=== PATIENT | female | born 1995 | race Caucasian/White ===

== ENCOUNTER 2018-01-15 05:33 | Inpatient (IN) ==
[2018-01-15] MEDS ORDERED: Metoprolol Tartrate 25 MG Tablet PO ONE (05:57)
[2018-01-15] MEDS ORDERED: Chlorhexidine Gluconate 2% 1 Pack (2 Cloths) TOPICAL ONE (05:57)
[2018-01-15] MEDS ORDERED: Sodium Chlor 0.9% Inj 500 ML IV.SIG SCH (06:00)
[2018-01-15] MEDS ORDERED: Heparin - SQ 10,000 UNITS/ML Vial SQ PRN (06:01)
[2018-01-15] MEDS ORDERED: ceFAZolin 2 GM IV; once IV.SIG PRN (06:02)
[2018-01-15] MEDS ORDERED: fentaNYL Citrate Inj 250 MCG/5 ML Ampul ONE (07:01)
[2018-01-15] MEDS ORDERED: HYDROmorphone PF Inj 2 MG/ML Vial ONE (07:02)
[2018-01-15] MEDS ORDERED: Lidocaine PF 1% Inj 5 ML Syringe OTHER ONE (07:14)
[2018-01-15] MEDS ORDERED: Sugammadex Inj 200 MG/2 ML Vial IV.PUSH ONE (08:53)
[2018-01-15] MEDS ORDERED: Naloxone Inj 0.4 MG/ML Vial IV.PUSH PRN (09:53)
[2018-01-15] MEDS ORDERED: Morphine Inj 4 MG/ML Vial ONE (10:26)
[2018-01-15] MEDS ORDERED: fentaNYL Citrate Inj 100 MCG/2 ML Ampul ONE (10:26)
[2018-01-15] MEDS ORDERED: *Meperidine Inj 25 MG/ML Vial PERIprocedural Use ONLY ONE (10:39)
[2018-01-15] MEDS ORDERED: *Ondansetron Inj 4 MG/2 ML Vial PERIprocedural Use ONLY ONE (10:42)
[2018-01-15] MEDS: Morphine Inj 30 MG/30 ML PCA.VIAL PCA PRN ×2 (11:03→13:29)
[2018-01-15] MEDS: Ketorolac Inj 30 MG/ML (IVP) Vial IV.PUSH SCH ×2 (12:20→18:42)
[2018-01-15] MEDS: LORazepam 0.5 MG Tablet PO PRN (13:21)
--- NOTE | 2018-01-15 16:01 | P.PNONC ---
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: patient is resting in bed with family at bedside pain controlled using CASINO DEALER pump IS at bedside no complaints Objective Vital Signs/Intake & Output: Vital Signs 01/15/18 06:48 01/15/18 10:16 01/15/18 10:30 Temperature 98.2 F 98 F Pulse Rate 89 87 77 Respiratory Rate 16 16 16 Blood Pressure 125/68 120/80 117/60 Pulse Oximetry 100 96 96 01/15/18 10:45 01/15/18 11:00 01/15/18 12:00 Temperature 97.6 F 97.8 F Pulse Rate 83 72 69 Respiratory Rate 16 16 18 Blood Pressure 124/67 116/73 116/73 Pulse Oximetry 96 96 98 Intake & Output 01/14/18 01/15/18 01/15/18 18:59 06:59 18:59 Intake Total 1500 / 1500 Output Total 100 / 100 Balance 1400 / 1400 Weight 86.8 kg Intake: Anesthesia Amount 1500 / 1500 Output: Estimated Blood Loss 100 / 100 Other: Weight On Admission 86.8 kg Laboratory Results: Laboratory Results - last 24 hr 01/15/18 06:40 Blood Type A Positive Blood Type Recheck Required Antibody Screen Negative Medications: Active Medications Generic Name Dose Route Start Last Admin Trade Name Freq PRN Reason Stop Dose Admin Diphenhydramine HCl 25 mg 01/15/18 09:53 01/15/18 11:58 Benadryl PO 25 mg Q6H PRN Administration ITCHING Heparin Sodium (Porcine) 5,000 units 01/15/18 06:01 01/15/18 06:40 Heparin Inj SQ 01/15/18 22:00 5,000 units SAFETY AND OCCUPATIONAL HEALTH MANAGER PRN Administration GIVE PRE-OP SAFETY AND OCCUPATIONAL HEALTH MANAGER TO OR Sodium Chloride 500 mls @ 30 mls/hr 01/15/18 06:00 01/15/18 07:22 Ns Inj IV.SIG Not Given .Q10H KELLEN Lactated Ringer's 1,000 mls @ 30 mls/hr 01/15/18 06:00 01/15/18 06:00 Lr 1000 Ml Inj IV.SIG 01/16/18 05:59 30 mls/hr .Q24H KELLEN Administration Cefazolin Sodium/Dextrose 2 gm in 50 mls @ 100 mls/hr 01/15/18 06:02 07:05 Ancef 2 Gm Premix Inj IV.SIG 01/15/18 22:00 100 mls/hr SAFETY AND OCCUPATIONAL HEALTH MANAGER PRN Administration PRE-OP SAFETY AND OCCUPATIONAL HEALTH MANAGER TO OR Morphine Sulfate 30 mg in 30 mls @ 0 mls/hr 01/15/18 09:53 01/15/18 13:33 Morphine Inj CASINO DEALER 0 mls/hr UNSCH PRN Infusion per CASINO DEALER parameters 0 MG/HR Ketorolac Tromethamine 30 mg 01/15/18 12:00 01/15/18 12:20 Toradol Inj IV.PUSH 01/18/18 06:01 30 mg Q6HR KELLEN Administration Lorazepam 0.5 mg 01/15/18 09:53 01/15/18 13:21 Ativan PO 0.5 mg Q8H PRN Administration ANXIETY Objective Remarks: GENERAL: Well-nourished, well-developed patient. SKIN: Warm and dry. HEAD: Normocephalic. EYES: No scleral icterus. No injection or drainage. CARDIOVASCULAR: Regular rate and rhythm without murmurs. RESPIRATORY: Breath sounds equal bilaterally. No accessory muscle use. GASTROINTESTINAL: Abdomen soft, nondistended, dressing is C/D/I EXTREMITIES: scds MUSCULOSKELETAL: Adequate muscle tone. NEUROLOGICAL: No obvious focal deficit. Awake, alert, and oriented x3. PSYCHIATRIC: Appropriate mood and affect; insight and judgment normal. Assessment/Plan (1) Pelvic mass in female Code(s): R19.00 - Intra-abdominal and pelvic swelling, mass and lump, unspecified site Status: Resolved - Plan post op s/p X lap for resection of pelvic mass final pathology is pending ADAT IS at bedside CASINO DEALER and Toradol for pain Petersen cath to straight drain, remove on POD #2 OOB to chair tomorrow and ambulate anticipate patient discharged home within the next 48 hours.
[2018-01-15] MEDS: Temazepam 15 MG Capsule PO SCH (20:56)
[2018-01-15] MEDS: Divalproex 500 MG ER Tablet PO SCH (20:57)
[2018-01-16] MEDS: Ketorolac Inj 30 MG/ML (IVP) Vial IV.PUSH SCH ×4 (00:22→17:35)
[2018-01-16] MEDS: LORazepam 0.5 MG Tablet PO PRN (05:23)
[2018-01-16 06:58] LABS: Baso % (Auto) 0.2 % (0.0-2.0); Eos # (Auto) 0.1 th/mm3 (0.0-0.4); Eos % (Auto) 0.5 % (0.0-4.0); Hematocrit 34.3 % (35.0-46.0); Hemoglobin 11.5 gm/dL (11.6-15.3); Lymph # (Auto) 2.6 th/mm3 (1.0-4.8); Lymph % (Auto) 19.3 % (9.0-44.0); Mean Corpuscular HGB Conc 33.5 % (32.0-36.0); Mean Corpuscular Volume 89.7 fL (80.0-100.0); Mean Platelet Volume 7.3 fL (7.0-11.0); Mono # (Auto) 1.7 th/mm3 (0.0-0.9); Mono % (Auto) 12.4 % (0.0-8.0); Neut # (Auto) 9.2 th/mm3 (1.8-7.7); Neut % (Auto) 67.6 % (16.0-70.0); Platelet Count 287 th/mm3 (150-450); Red Blood Count 3.82 mil/mm3 (4.00-5.30); Red Cell Distribution Width 15.5 % (11.6-17.2); White Blood Count 13.7 th/mm3 (4.0-11.0)
[2018-01-16 07:12] LABS: Anion Gap 9 meq/L (5-15); Blood Urea Nitrogen 5 mg/dL (7-18); Calcium 7.8 mg/dL (8.5-10.1); Carbon Dioxide 28.4 meq/L (21.0-32.0); Chloride 105 meq/L (98-107); Glomerular Filtration Rate Greater Than 89 mL/min (>89); Glucose,Random 94 mg/dL (74-106); Potassium 4.2 meq/L (3.5-5.1); Sodium 142 meq/L (136-145)
--- NOTE | 2018-01-16 08:09 | P.PN ---
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, tolerating adhesive dressing without any problems Physical Exam Vital signs: Vital Signs 01/15/18 10:16 01/15/18 10:30 01/15/18 10:45 Temperature 98 F Pulse Rate 87 77 83 Respiratory Rate 16 16 16 Blood Pressure 120/80 117/60 124/67 Pulse Oximetry 96 96 96 01/15/18 11:00 01/15/18 12:00 01/15/18 14:00 Temperature 97.6 F 97.8 F Pulse Rate 72 69 Respiratory Rate 16 18 18 Blood Pressure 116/73 116/73 Pulse Oximetry 96 98 01/15/18 16:00 01/15/18 18:24 01/15/18 20:00 Temperature 99.4 F Pulse Rate 95 H 98 H Respiratory Rate 18 18 18 Blood Pressure 124/69 131/72 Pulse Oximetry 99 96 01/16/18 00:00 01/16/18 04:00 Temperature 98.6 F 98.5 F Pulse Rate 105 H 80 Respiratory Rate 16 16 Blood Pressure 107/71 95/55 L Pulse Oximetry 99 97 Intake & Output 01/15/18 01/16/18 01/16/18 18:59 06:59 18:59 Intake Total 2150 / 2150 1480 / 1480 Output Total 500 / 500 1800 / 1800 Balance 1650 / 1650 -320 / -320 Weight 89.5 kg Intake: IV 50 / 50 1000 / 1000 LR 1000 mL Inj 1,000 ML @ 30 1000 / 1000 mls/hr IV.SIG .Q24H [facility] Rx#: [id number] Ancef 2 GM Premix Inj 2 gm In 50 / 50 50 ml @ 100 mls/hr IV.SIG BRASS PICKLER PRN Rx#:[id number] Oral 600 / 600 480 / 480 Anesthesia Amount 1500 / 1500 Output: Urine 1800 / 1800 Estimated Blood Loss 100 / 100 Urine Amount (Catheter) 400 / 400 100 400 / 400 - Constitutional no acute distress - Routine HEENT Exam Eye: Present: EOMI - Routine Respiratory Exam Present: CTA bilaterally - Routine Cardiovascular Exam Present: RRR - Routine Abdominal Exam Present: soft (dressing clean and dry, no skin irritation) - Routine Neurological Exam Present: alert, oriented X3 - Routine Psychiatric Exam Present: normal affect - Urinary Catheter Management 100 Cath placed during this visit: no Reason for continuing: Other continuation reason Results - Labs CBC & Chem 7: 01/16/18 06:30 01/16/18 06:30 Laboratory Results - last 24 hr 01/16/18 01/16/18 06:30 06:30 WBC 13.7 H RBC 3.82 L Hgb 11.5 L Hct 34.3 L MCV 89.7 MCH 30.0 MCHC 33.5 RDW 15.5 Plt Count 287 MPV 7.3 Neut % (Auto) 67.6 Lymph % (Auto) 19.3 [place] % (Auto) 12.4 H Eos % (Auto) 0.5 Baso % (Auto) 0.2 Neut # (Auto) 9.2 H Lymph # (Auto) 2.6 [place] # (Auto) 1.7 H Eos # (Auto) 0.1 Baso # (Auto) 0.0 WBC Differential . Differential Comment Auto diff final Sodium 142 Potassium 4.2 Chloride 105 Carbon Dioxide 28.4 Anion Gap 9 BUN 5 L Creatinine 0.66 Estimated GFR Greater than 89 Random Glucose 94 Calcium 7.8 L Assessment and Plan - Assessment (1) Pelvic mass in female Code(s): R19.00 - Intra-abdominal and pelvic swelling, mass and lump, unspecified site Status: Resolved - Plan POD#1 doing well in early post op period findings, steps taken & preliminary path reviewed, q&a, she understands oob, spirometry, adat, d/c bray when ambulatory
[2018-01-16] MEDS: Morphine Inj 30 MG/30 ML PCA.VIAL PCA PRN ×2 (09:20→18:38)
[2018-01-16] MEDS: Divalproex 500 MG ER Tablet PO SCH ×2 (09:20→20:28)
--- NOTE | 2018-01-16 13:14 | MP ---
cc: Nikki Burnett MD, Carhine MD Gosalia, Nikita DO DATE OF OPERATION: 01/15/2018 DATE OF PROCEDURE: 01/15/2018 PREOPERATIVE DIAGNOSES: 1. Complex pelvic mass (versus bilateral masses). 2. Features suggestive of ovarian mature cystic teratomas. POSTOPERATIVE DIAGNOSES: 1. 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 2. Normal-appearing left ovary, fallopian tube, and uterus. PROCEDURE PERFORMED: Exploratory laparotomy, resection of approximately 18 cm right ovarian mass with torsion, lysis of adhesions. SURGEON: Nikki Burnett MD ESTIMATING MANAGER: Gaurav first crusher. ANESTHESIA: General endotracheal anesthesia. ESTIMATED BLOOD LOSS: 100 mL. IV FLUIDS: 1500 mL. URINE OUTPUT: 100 mL. INDICATIONS FOR PROCEDURE: This is a 22-year-old female found on exam and imaging to have complex pelvic mass versus possible bilateral masses based on findings on CAT scan and ultrasound. Imaging characteristics showed calcifications and fat with overall changes suggestive of ovarian mature cystic teratomas. She was seen and counseled in the office and seen again in the preop holding area accompanied by her family where the findings and plan of care are again reviewed. Questions were asked and answered. Her and her family expressed good understanding and she is ready to proceed with surgical evaluation. We discussed again the potential reproductive and menopausal ramifications depending on the extent of the surgery required. She expressed good understanding. FINDINGS: Upon entry into the peritoneal cavity, there was a small amount of vel-colored slightly bloody ascites, which was collected for cytology. Exploration allowed identification of the large mass, which was arising from the pelvis extending to the level of the umbilicus, which was consistent with findings of preoperative exam under anesthesia and it was felt that laparotomy was required to accomplish surgical objectives and it was felt that she was not a good candidate for laparoscopic surgery. Upon entry into the peritoneal cavity, approximately 18 cm multilobulated bilobed complex mass was seen. The upper portion of the mass was extending above the pelvis toward the umbilicus and in the lower portion of the mass was wedged in the posterior cul-de-sac with some bands of adhesions between the omentum and the mass as well as the mass and the colonic mesenteric with filmy adhesions to surrounding structures. After the adhesions were lysed, the mass was able to be mobilized and lifted out of the posterior cul-de-sac. At this point, it could be seen arising from and replacing the right ovary. The uterus was visualized, small and normal in appearance, and the left tube and ovary appeared normal with a small area that appeared to be consistent with recent ovulatory cyst. No neoplastic changes were visible or palpable in the left adnexa. Exploration of the peritoneal cavity showed the liver diaphragm edges to be smooth. There were no peritoneal implants. There were no appreciably enlarged pelvic or paraaortic lymph nodes and the frozen section analysis of the right ovarian mass showed it to be a mature cystic teratoma. DESCRIPTION OF PROCEDURE: She was taken to the operating room and placed in dorsal lithotomy position after general endotracheal anesthesia was administered. A timeout was then taken. She was identified by site recognition, the hospital ID [email or web address] and the proposed procedure was reviewed and confirmed. She was carefully positioned in Dk stirrups. Her arms were secured out to the sides. All sites were inspected and noted to be properly aligned. No malalignment or pressure points and exam under anesthesia was performed with findings as described above. She was prepped and draped in sterile fashion. Petersen catheter placed in the bladder. All steps were taken with care given her STATED ALLERGY TO LATEX. She was prepped and draped in sterile fashion. Orogastric tube in the stomach on suction. Midline incision made from the symphysis toward the umbilicus and it was carried down to the level of the fascia. The fascia was entered. The rectus muscles were in the midline. The peritoneal cavity was entered. The ascites fluid was removed and collected for cytology. The remaining several hundred mL of ascites were suctioned and removed. Visual and manual inspection allowed removal of adhesions circumferentially around this mass and it was wedged in the posterior cul-de-sac but, on palpation, did not identify any persistent adhesions and with elevation, the suction was broken and the mass was able to be lifted from the pelvis and brought out through the abdominal wall incision. This allowed identification of a normal uterus and a normal left tube and ovary and the mass itself was bilobed which is probably why there was radiographic appearance suggestive of bilateral masses. The capsule was intact. There was what appeared to be a 360-degree torsion of the gonadal vessels without obvious compromise, ischemia or necrosis to the mass. The retroperitoneal dissection was carried out on the right side lateral and parallel to the gonadal vessels. The right ureter was identified. The right infundibulopelvic ligament was isolated. The intervening peritoneum was opened. The infundibulopelvic ligament was doubly clamped, cut and doubly suture ligated at the level of the pelvic brim. Peritoneum was opened to isolate the right utero-ovarian ligament. The remaining adhesions were taken down. The right utero-ovarian ligament was isolated, doubly clamped, cut, and suture ligated, thereby removing the large complex right ovarian mass. It should be noted that inspection of the mass was such that the efforts were made to identify normal ovarian tissue in an effort to try to remove the mass from the normal ovarian tissue as conservative measures if possible; however, the mass was quite large and the ovarian tissue was completely distorted by the mass such that there was no clearcut normal ovary remaining at the hilum. Furthermore, there was concern about rupture of the capsule with spill of the mass content into the peritoneal cavity if such dissection was undertaken. Given the normal appearance of the left tube and ovary and no other abnormal findings combined with the radiographic features suggestive of a dermoid, the decision was made to remove the right tube and ovary and remove the large ovarian mass. Having sent for frozen section analysis, findings were consistent with a mature cystic teratoma. No evidence of malignancy. The pelvis was thoroughly irrigated. Small bleeders were rendered hemostatic with bipolar cautery. To assist in avoiding hemostasis, Seprafilm was placed over the right adnexal dissection edge over the ovary and continued toward the left adnexa. Inspection and palpation confirmed there were no remaining foreign objects in the peritoneal cavity and the preliminary lap counts were correct. It was felt that all reasonable surgical objectives had been completed and attention was directed to closing the abdominal wall. The omentum was placed over the abdominal content below the abdominal incision and Seprafilm was placed over the top of the omentum between the omentum and the anterior abdominal wall prior to closure. The abdominal wall was closed with 0 looped PDS in a running continuous modified Smead-Gudino fashion starting at the apices and meeting in the midpoint where the sutures were tied. Subcutaneous tissue was irrigated thoroughly. Arabella's fascia reapproximated with interrupted 2-0 Vicryl sutures, and the skin edges were closed with a 3-0 Vicryl running subcuticular. Preoperatively, it was confirmed that she could tolerate Steri-Strips and nonlatex containing adhesive, so Steri-Strips were applied across the incision and a sterile dressing was applied over this. Exam confirmed there were no remaining foreign objects in the vagina. Preliminary and final counts were correct. She was returned to dorsal supine position and was pending reversal of anesthesia when I left the operating room to precede her to the postanesthesia care unit and to speak to her family members who were waiting. MD WU Judge/kortney , 12:30 PM , 12:50 PM
[2018-01-16] MEDS: Temazepam 15 MG Capsule PO SCH (20:29)
[2018-01-17] MEDS: Ketorolac Inj 30 MG/ML (IVP) Vial IV.PUSH SCH ×4 (00:13→18:41)
[2018-01-17] MEDS: Morphine Inj 30 MG/30 ML PCA.VIAL PCA PRN (00:31)
--- NOTE | 2018-01-17 09:30 | P.PN ---
Subjective Interval history: no new c/o ambulating ok, voiding, some early p.o. intake, +/- flatus still feeling a bit unsteady on her feet, improving Physical Exam Vital signs: Vital Signs 01/16/18 10:50 01/16/18 12:20 01/16/18 15:23 Temperature 98.3 F 98 F Pulse Rate 93 H 95 H Respiratory Rate 18 16 16 Blood Pressure 102/60 116/62 Pulse Oximetry 100 01/16/18 20:00 01/17/18 00:00 01/17/18 01:51 Temperature 97.5 F L 97.9 F Pulse Rate 89 83 Respiratory Rate 16 16 16 Blood Pressure 115/70 96/59 L Pulse Oximetry 99 98 01/17/18 04:00 Temperature 97.2 F L Pulse Rate 70 Respiratory Rate 14 Blood Pressure 94/60 L Pulse Oximetry 99 Intake & Output 01/16/18 01/17/18 01/17/18 18:59 06:59 18:59 Intake Total 1690 / 1690 200 / 200 Output Total 1500 / 1500 1200 / 1200 Balance 190 / 190 -1000 / -1000 Weight 87 kg Intake: Oral 1690 / 1690 200 / 200 Output: Urine 1200 / 1200 Urine Amount (Catheter) 1500 / 5863 929 3717 / 1500 - Constitutional no acute distress - Routine Respiratory Exam Present: CTA bilaterally - Routine Cardiovascular Exam Present: RRR - Routine Abdominal Exam Present: soft (dressing clean, dry) - Routine Neurological Exam Present: oriented X3 - Urinary Catheter Management 100 Cath placed during this visit: yes, but has since been removed by the nurse Reason for continuing: Decision to DC catheter Removal date: 01/16/18 Removal time: 15:30 Results - Labs CBC & Chem 7: 01/16/18 06:30 01/16/18 06:30 Assessment and Plan - Assessment (1) Pelvic mass in female Code(s): R19.00 - Intra-abdominal and pelvic swelling, mass and lump, unspecified site Status: Resolved - Plan POD#2 doing well in early post op period cpm, oob, spirometry, ambulate anticipate meeting criteria for discharge within ~24 hours
[2018-01-17] MEDS: Divalproex 500 MG ER Tablet PO SCH ×2 (09:41→22:29)
[2018-01-17] MEDS: Temazepam 15 MG Capsule PO SCH (22:29)
[2018-01-18] MEDS: Ketorolac Inj 30 MG/ML (IVP) Vial IV.PUSH SCH ×2 (00:28→05:30)
[2018-01-18] MEDS: Morphine Inj 30 MG/30 ML PCA.VIAL PCA PRN (06:23)
[2018-01-18 08:41] VITALS: BP 127/81; PULSE 90; RESP 18; TEMP 97.8; O2SAT 100
[2018-01-18] MEDS: Divalproex 500 MG ER Tablet PO SCH (08:44)
--- NOTE | 2018-01-18 08:46 | MD ---
cc: Nikki Burnett MD,Enoc Roberson DATE OF DISCHARGE: 01/18/2018 PROCEDURE: On 01/15/2018, exploratory laparotomy, resection of large complex right ovarian mass. HOSPITAL COURSE: She did well in hospital recovery, gradually was able to advance her diet, was tolerating liquid and solid intake. Petersen catheter removed. She is voiding. She is able to now ambulate unassisted and feels steady on her feet. No new complaints. Feels well and would like to go home. OBJECTIVE: Ins and outs: 1080/4400. Immediate postop H and H 11.5 and 34.3. Pathology consistent with benign mature cystic teratoma, capsule was intact upon removal. PHYSICAL EXAMINATION: VITAL SIGNS: She is afebrile, pulse 78-87, respirations 16, blood pressure 103-114/64-71, O2 saturations greater than 98%. GENERAL: Alert and oriented x 3, no acute distress. LUNGS: Clear. CARDIOVASCULAR: Regular rate and rhythm. ABDOMEN: Midline incision healing well. Steri-Strips intact. EXTREMITIES: Nontender. ASSESSMENT: Postoperative day number 3, doing well in postop recovery. Findings at the time of surgery and the final pathology report are now again reviewed and are consistent with preliminary pathology report. Activities/restrictions discussed. Questions were asked and answered. She expressed good understanding. PLAN: Discharged to home today. She is to contact our office to schedule a followup in 2 weeks. 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 Prescription for Percocet is provided should she need that at home. Otherwise, she can take [id number] medication as discussed. Our office number is made available and she is to contact our office should she have any questions or problems between now and the time of scheduled followup. MD WU Judge/erin , 07:24 AM , 07:31 AM
== END 2018-01-18 11:37 | disposition home or self-care (01) ==
LOC: HSDC 05:33 → HSDI 09:53 → HCIN 11:23
PROVIDERS: ADMIT Obstetrics & Gynecology Gynecologic Oncology; ATTEND Obstetrics & Gynecology Gynecologic Oncology